=== PATIENT | female | born 1925 | race Asian ===

== ENCOUNTER 2016-11-15 13:55 | Inpatient (IN) | payer MEDICARE, OTHER ==
[~2016-11-15] VITALS: Ht 162.6 cm; Wt 53.2 kg
[~2016-11-15 13:55] MED LIST: ACET325T40 PO; DOCU-144 PO; HYDR-3671 PO; LANT3I SC; LOSA50TA2 PO; METO-448 PO; NOVO3I SC; OSLT75C PO; SENN-36 PO
[2016-11-15] MEDS ORDERED: DIPHTH/TET/ACEL PERTUSS (ADULT) 0.5 ML VIAL IM* ONE (14:00)
[2016-11-15] MEDS ORDERED: CELE200C PO (16:12)
[2016-11-15] MEDS ORDERED: OMEP40CA6 PO (16:12)
[2016-11-15] MEDS ORDERED: FURO20TA3 PO (16:13)
[2016-11-15] MEDS ORDERED: SIMV20TA PO (16:13)
[2016-11-15] MEDS ORDERED: CLOP75TA4 PO (16:13)
[2016-11-15] MEDS ORDERED: POTA8CAP PO (16:14)
[2016-11-15] MEDS ORDERED: CARV12.579 PO (16:15)
[2016-11-15] MEDS ORDERED: LIPA1CAP6 PO (16:15)
[2016-11-15] MEDS ORDERED: KENC1 TOP (16:16)
[2016-11-15] MEDS ORDERED: SITA1TAB PO (16:16)
[2016-11-15] MEDS ORDERED: OLME1TAB37 PO (16:17)
--- NOTE | 2016-11-15 17:27 | RADRPT ---
PROCEDURE: CT Brain without. CLINICAL INDICATION: Trauma. TECHNIQUE: A CT of the brain was performed on multidetector high-resolution CT scanner utilizing a xial sections from the skull base through the vertex without contrast. The scan was reviewed in sof t tissue brain and high frequency resolution bone algorithm windows. Images were reviewed on a high -resolution PACS workstation. One or more the following does reduction techniques were utilized: Aut omated exposure control, adjustment of the mA/ or kV according to patient's size, or use of iterativ e reconstruction technique. The exam CTDI = 45.01 mGy and the DLP = 90.03 mGy-cm. COMPARISON: Brain CT 09/06/2015. FINDINGS: There is low density subdural fluid collection mainly overlying right frontal and parietal lobes jeronimo suring up to 5 mm in thickness which likely represent chronic subdural hematoma. The ventricles and sulci are mildly prominent indicative of volume loss. There is no acute intracran ial hemorrhage, mass effect or midline shift. The hollis/white matter differentiation is preserved. Small old infarct in the right cerebellum is again noted. Chronic lacunar infarct within the left in ferior basal ganglia as well as old pontine infarct are noted. There are moderate scattered foci of hypoattenuation in the white matter, which are nonspecific in e tiology but likely reflect chronic small vessel ischemic changes. There are moderate intracranial v ascular calcifications consistent with atherosclerosis. The visualized paranasal sinuses are essenti ally clear. There is thinning of bilateral lens indicative of prior lens replacement. IMPRESSION: 1. 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 2. No acute intracranial hemorrhage, transcortical infarction or midline shift. 3. Moderate intracranial atherosclerosis and chronic small vessel ischemic changes. 4. 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 5. Mild generalized cerebral volume loss. RPTAT: HH .Arley Bhat MD, MD Date Time Electronically viewed and signed by .Arley Bhat MD, MD on 11/15/2016 17:27 .N/
--- NOTE | 2016-11-15 17:36 | RADRPT ---
PROCEDURE: CT cervical spine without contrast CLINICAL INDICATION: Trauma. Neck pain. TECHNIQUE: CT scan of the cervical spine was performed on [facility] No IV contrast was administered. Coronal and sagittal reformatted images were obtained from th e axial source images. Images were reviewed on a high-resolution PACS workstation. One or more the f ollowing does reduction techniques were utilized: Automated exposure control, adjustment of the mA/ or kV according to patient's size, or use of iterative reconstruction technique. Exam CTDI = 22.21 m Gy and the DLP = 457.86 mGy-cm. COMPARISON: None available. FINDINGS: There is straightening of the alignment of the cervical spine with loss of the normal cervical lordo sis. Alignment remains intact. No acute fracture or dislocation is seen. The vertebral body heigh ts are preserved. No mass, hematoma, or other soft tissue abnormality is seen. There are multilevel mild to moderate degenerative changes of the cervical spine, manifested by oste ophytosis and disc height narrowing, most prominent at C4-C5, C5-C6 and C6-C7. Prominent anterior os teophyte ptosis at C3-C4 indenting the posterior pharynx. Uncovertebral osteophytes and facet arthro kem result in multilevel foraminal stenosis: at C2-C3 moderate to severe on the right and mild on the left, at C3-C4 severe on the right and mild on the left, at C4-C5 severe on the right and mild o n the left, at C5-C6 moderate to severe on the right and moderate on the left, at C6-C7 moderate on the right and mild on the left. Posterior disk osteophyte complexes contribute to mild to moderate s cody canal stenosis at C3-C4 through C6-C7. Moderate bilateral carotid bulb atherosclerotic vascular calcifications are identified. IMPRESSION: 1. Straightening of normal cervical lordosis. 2. No acute fracture or traumatic subluxation. 3. Multilevel mild to moderate degenerative changes of the cervical spine, most prominent at C4-C5, C5-C6 and C6-C7. 4. Multilevel moderate to severe foraminal stenosis as outlined in details in findings. 5. Mild to moderate spinal canal stenosis at C3-C4 through C6-C7. 6. Moderate bilateral carotid bulb atherosclerotic vascular calcifications. RPTAT: .Arley Bhat MD, MD Date Time Electronically viewed and signed by .Arley Bhat MD, MD on 11/15/2016 17:35 .N/
[2016-11-15] MEDS ORDERED: LIDOCAINE 1%/EPI 30 ML INJ IM ONE (18:00)
[2016-11-15] MEDS ORDERED: LIDOCAINE 1%/EPI (MDV) 20 ML INJ IM ONE (18:00)
[2016-11-15 19:06] LABS: BASOPHIL # 0.1 10^3/ul (0.0-0.1); BASOPHILS % 0.7 % (0.0-2.0); EOSINOPHILS % 0.1 % (0.0-7.0); HEMATOCRIT 36.7 % (37.0-47.0); HEMOGLOBIN 12.4 g/dl (12.0-16.0); LYMPHOCYTES # 2.1 10^3/ul (0.8-2.9); LYMPHOCYTES % 18.5 % (15.0-51.0); MEAN CORPUSCULAR HEMOGLOBIN 34.6 pg (29.0-33.0); MEAN CORPUSCULAR HGB CONC 33.8 g/dl (32.0-37.0); MEAN CORPUSCULAR VOLUME 102.6 fl (82.0-101.0); MEAN PLATELET VOLUME 8.7 fl (7.4-10.4); MONOCYTE # 0.7 10^3/ul (0.3-0.9); MONOCYTES % 5.7 % (0.0-11.0); NEUTROPHIL # 8.7 10^3/ul (1.6-7.5); PLATELET COUNT 271 10^3/UL (140-440); RED BLOOD COUNT 3.58 10^6/ul (4.20-5.40); RED CELL DISTRIBUTION WIDTH 14.6 % (11.5-14.5); UNCORRECTED WBC 11.6 10^3/ul (4.8-10.8); WHITE BLOOD COUNT 11.6 10^3/ul (4.8-10.8)
[2016-11-15 19:10] LABS: CONDITION 1; LH ANALYZER COMMENTS 1
[2016-11-15] MEDS ORDERED: ACETAMINOPHEN 325 MG TAB PO PRN (19:30)
[2016-11-15] MEDS ORDERED: ONDANSETRON 4 MG INJ IV PRN (19:30)
--- NOTE | 2016-11-15 19:43 | ERA ---
ER Documentation Chief Complaint Date/Time DATE: 11/15/16 TIME: 19:41 Chief Complaint BIB RA FOR EVAL OF LAC TO BACK OF HEAD. GLF TODAY. NO KO HPI 89-year-old female who presents via EMS after mechanical trip and fall. The patient was walking on gravel slipped and fell. The patient hit her head and has an occipital scalp laceration. She is accompanied by her son. She has a history of dementia. After period of time the son noted that the patient had recently been discharged from assisted living facility. She lives at home alone and her is hospitalized. He feels that the patient cannot care for herself and she has been falling frequently. He does not feel comfortable managing the patient at home. Unknown tetanus. The patient has no complaints. No neck pain no prodrome of chest pain or shortness of breath. ROS All systems reviewed and are negative except as per history of present illness. Medications Home Meds Active Scripts Insulin Glargine* (Lantus*) 100 Unit/Ml Soln, 15 UNIT SC HS for 14 Days, EA Prov:EVER LENZ MD 09/07/15 Insulin Aspart* (Novolog Insulin Pen*) 100 Unit/Ml Soln, 0 UNIT SC AC MEALS AND BEDTIME for 14 Days Prov:EVER LENZ MD 09/07/15 Reported Medications Jdzqldrwvb-Yrwcyqnamd-RFVO (Tribenzor) 40-10-25 Mg Tablet, 1 TAB PO DAILY, TAB 11/15/16 Triamcinolone Acetonide* (Kenalog*) 0.1%-15GM Cr, 1 APPLIC TOP BID, #1 TUB 11/15/16 Sitagliptin Phos/Metformin HCl (Janumet 50-500 mg Tablet) 1 Each Tablet, 1 EACH PO BID, TAB 11/15/16 Nucajg-Vufyjcha-Fgcrjyn* (Joseph LEAVITT* 24,000) 24,000 L-76,000-120,000 Unit Capsule.dr, 1 CAP PO WITH MEALS, CAP 11/15/16 Carvedilol* (Carvedilol*) 12.5 Mg Tablet, 12.5 MG PO DAILY, #60 TAB 11/15/16 Potassium Chloride* (Potassium Chloride*) 8 Meq Capsule.er, 8 MEQ PO DAILY, CAP 11/15/16 Furosemide* (Furosemide*) 20 Mg Tablet, 20 MG PO DAILY, #60 TAB 11/15/16 Clopidogrel Bisulfate* (Clopidogrel Bisulfate*) 75 Mg Tablet, 75 MG PO DAILY, # 30 TAB 11/15/16 Simvastatin* (Zocor*) 20 Mg Tablet, 20 MG PO QHS, #30 TAB 11/15/16 Celecoxib* (Celebrex*) 200 Mg Capsule, 200 MG PO DAILY, CAP 11/15/16 Omeprazole* (Omeprazole*) 40 Mg Capsule.dr, 40 MG PO DAILY, #30 CAP 11/15/16 Discontinued Scripts Oseltamivir Phosphate* (Tamiflu*) 75 Mg Capsule, 75 MG PO BID for 5 Days, CAP Prov:BONNY BROWN 09/07/16 Sennosides* (Senokot*) 1 Tab Tab, 2 TAB PO BID for 14 Days, TAB Prov:EVER LENZ MD 09/07/15 Metoprolol Tartrate* (Lopressor*) 25 Mg Tab, 25 MG PO BID for 14 Days, TAB Prov:EVER LENZ MD 09/07/15 Losartan Potassium* (Cozaar*) 50 Mg Tab, 100 MG PO DAILY for 14 Days, TAB Prov:EVER LENZ MD 09/07/15 Hydralazine Hcl* (Hydralazine Hcl*) 25 Mg Tab, 50 MG PO Q8 for 14 Days, TAB Prov:EVER LENZ MD 09/07/15 Docusate Sodium* (Colace*) 100 Mg Cap, 100 MG PO BID for 14 Days, CAP Prov:EVER LENZ MD 09/07/15 Acetaminophen (MAPAP) 325 Mg Tab, 650 MG PO Q6H Y for PAIN LEVEL 1-3 OR FEVER for 14 Days, TAB Prov:EVER LENZ MD 09/07/15 Allergies Allergies: Coded Allergies: Penicillins (Verified Allergy, Mild, 11/15/16) PMhx/Soc History of Surgery: Yes (BACK SX X3) Anesthesia Reaction: No Hx Neurological Disorder: No Hx Respiratory Disorders: Yes (HX OF PNEUMONIA) Hx Cardiac Disorders: Yes (HTN) Hx Psychiatric Problems: No Hx Miscellaneous Medical Probl: Yes (HTN, TBI with subdural hematoma) Hx Alcohol Use: No Hx Substance Use: No Hx Tobacco Use: No Smoking Status: Never smoker FmHx Family History: No diabetes Physical Exam Vitals Vital Signs Date Time Temp Pulse Resp B/P Pulse Ox O2 Delivery O2 Flow Rate FiO2 11/15/16 19:00 98.4 78 16 136/82 100 Room Air 11/15/16 16:05 98.6 75 16 142/84 100 Room Air 11/15/16 14:01 98.4 74 19 152/82 100 Physical Exam General: Well developed, well nourished, no acute distress Head: Occipital scalp laceration Eyes: Pupils equally reactive, EOM intact ENT: Moist mucous membranes Neck: Supple, no lymphadenopathy, No midline tenderness, deformities, step-offs to the cervical spine, full active and passive range of motion without midline pain. Respiratory: Lungs clear bilaterally, no distress Cardiovascular: RRR, no murmurs, rubs, or gallops Abdominal: Soft, non-tender, non-distended, no peritoneal signs : Deferred MSK: No edema, no unilateral swelling, 5/5 strength Neurologic: Alert and oriented, moving all extremities, normal speech, no focal weakness, no cerebellar signs Skin: Occipital scalp laceration approximately 3 cm Psych: Normal mood Result Diagram: 11/15/16 8977 Results 24 hrs Laboratory Tests Test 11/15/16 18:45 Basophils # 0.110^3/ul Basophils % 0.7% Blood Morphology Comment Eosinophils # 0.010^3/ul Eosinophils % 0.1% Hematocrit 36.7% Hemoglobin 12.4g/dl Lymphocytes # 2.110^3/ul Lymphocytes % 18.5% Mean Corpuscular Hemoglobin 34.6pg Mean Corpuscular Hemoglobin Concent 33.8g/dl Mean Corpuscular Volume 102.6fl Mean Platelet Volume 8.7fl Monocytes # 0.710^3/ul Monocytes % 5.7% Neutrophils # 8.710^3/ul Neutrophils % 75.0% Nucleated Red Blood Cells # 0.010^3/ul Nucleated Red Blood Cells % 0.0/100WBC Platelet Count 91564^3/UL Red Blood Count 3.5810^6/ul Red Cell Distribution Width 14.6% White Blood Count 11.610^3/ul Current Medications Medications (Trade) Dose Ordered Sig/Michael Route PRN Reason Start Time Stop Time Status Last Admin Dose Admin Diphtheria/ Tetanus/Acell Pertussis (Adacel) 0.5 ml ONCE ONCE IM* 11/15/16 14:00 11/15/16 14:01 DC 11/15/16 14:57 Lidocaine/ Epinephrine (Xylocaine 1%/ Epi (Mdv) 20 ml) 20 ml ONCE ONCE IM 11/15/16 18:00 11/15/16 18:00 DC Lidocaine/ Epinephrine (Xylocaine 1%/ Epi) 20 ml ONCE ONCE IM 11/15/16 18:00 11/15/16 18:01 DC Ondansetron HCl (Zofran Inj) 4 mg BRIDGE ORDER PRN IV NAUSEA AND/OR VOMITING 11/15/16 19:30 11/16/16 19:29 Acetaminophen (Tylenol Tab) 650 mg ER BRIDGE PRN PO MILD PAIN/FEVER 11/15/16 19:30 11/16/16 19:29 Procedures/MDM EKG, MONITORS, & DIAGNOSTIC IMAGING: CT brain: IMPRESSION: 1. 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 2. No acute intracranial hemorrhage, transcortical infarction or midline shift. 3. Moderate intracranial atherosclerosis and chronic small vessel ischemic changes. 4. 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 5. Mild generalized cerebral volume loss. CT spine IMPRESSION: 1. Straightening of normal cervical lordosis. 2. No acute fracture or traumatic subluxation. 3. Multilevel mild to moderate degenerative changes of the cervical spine, most prominent at C4-C5, C5-C6 and C6-C7. 4. Multilevel moderate to severe foraminal stenosis as outlined in details in findings. 5. Mild to moderate spinal canal stenosis at C3-C4 through C6-C7. 6. Moderate bilateral carotid bulb atherosclerotic vascular calcifications. RPTAT: PROCEDURES: Laceration Note: The patient was verbally consented prior to procedure and understands the risks , benefits, and alternatives. The patient is agreeable to procedure and has given verbal consent. Length: 3.0 cm Irrigation: Thorough irrigation was performed with pressure is normal saline Inspection: There is no evidence of deep tissue or structural injury, no evidence of foreign bodies Anesthesia: 1% lidocaine with epinephrine approximately 4 cc Repair: Single layer simple repair using 4 jason A clean dressing was applied. The patient tolerated the procedure well with no complications. LAB INTERPRETATION: Subtle leukocytosis MEDICAL DECISION MAKING: The patient had a clear mechanical fall. This is not consistent with syncope. However, the patient has had frequent falls. The patient's son feels that the patient cannot be cared for at home and she cannot care for activities of daily living and is a significant fall risk. Given her social situation inpatient hospitalization may be required. The patient does not have evidence of a C-spine injury. However given her age CT C-spine is indicated. CT of the brain is appropriate as well. ER COURSE: The patient's laceration has been repaired. Her tetanus is updated. The patient's CT shows evidence of chronic subdural. This is likely subacute however I spoke to the neurosurgeon alternative education teacher Dr. Henao. We reviewed the case. He feels that this is minimal, likely subacute and does not require intervention. Outpatient follow-up would be reasonable. Given that the patient is having difficulty ambulating with frequent falls inpatient hospitalization will be appropriate, patient will benefit from PT OT and likely placement. I kept the patient and/or family informed of laboratory and diagnostic imaging results throughout the emergency room course. DISPOSITION PLAN: Medical surgical admission CONSULTATION: Accepting care team and consultations: I discussed the current laboratory data, diagnostic imaging and emergency care provided. Admitting team: Dr. Brown Admitting team indication: Insurance directed Consulting services: Dr. Henao Departure Diagnosis: Primary Impression: Chronic subdural hematoma Additional Impressions: Occipital scalp laceration Qualified Code: S01.01XA - Occipital scalp laceration, initial encounter Frequent falls Dementia Qualified Code: F03.90 - Dementia without behavioral disturbance, unspecified dementia type Condition: MITCH Cyr MD Nov 15, 2016 19:43
[2016-11-15 19:58] LABS: INR 1.04; POTASSIUM 3.7 mmol/L (3.5-5.1); PROTIME 13.6 Sec (12.2-14.2); PT RATIO 1.1
[2016-11-15 19:59] LABS: PARTIAL THROMBOPLASTIN TIME 32.4 Sec (25.0-35.0)
[2016-11-15 20:00] LABS: CREATININE 0.55 mg/dl (0.44-1.00)
[2016-11-15 20:01] LABS: CALCIUM 9.1 mg/dl (8.4-10.2)
[2016-11-15 21:12] VITALS: TEMP 98.4
[2016-11-15 23:00] VITALS: Ht 162.6 cm; Wt 53.2 kg
[2016-11-16] VITALS: BP 140/74; PULSE 82; RESP 16
[2016-11-16] MEDS ORDERED: HALOPERIDOL 5 MG INJ IM ONE (01:15)
[2016-11-16] MEDS ORDERED: ONDANSETRON 4 MG INJ IV PRN (05:00)
[2016-11-16] MEDS: ACETAMINOPHEN 325 MG TAB PO PRN (06:15)
[2016-11-16] MEDS: DEXTROSE 5%-0.45% NACL 1,000 ML IV SCH ×2 (06:16→21:23)
[2016-11-16] MEDS: HEPARIN 5,000 UNIT/0.5 ML SYG SC SCH ×2 (10:05→21:20)
[2016-11-16] MEDS ORDERED: morphine 2 MG INJ IV PRN (12:00)
--- NOTE | 2016-11-16 14:58 | CONS ---
DATE OF ADMISSION: 11/15/2016 DATE OF CONSULTATION: 11/16/2016 PALLIATIVE CARE CONSULTATION REFERRING PHYSICIAN: Austin Brown MD HISTORY OF PRESENT ILLNESS: somewhat confused elderly female who was brought to the emergency room by her son. Apparently she had a mechanical fall and struck the back of her head. Complain of pain , but was not otherwise altered. Was seen in the emergency room. The son states that he has been t aking care of her, but he cannot take care of her. The story becomes a bit confusing at that time. According to medical records in the past she was living in a longterm unit, and [place] [facility] [place] this part that the patient was actually living in a board and care facility. The p bradley is no historian. In reviewing her past medical records, the patient has had multiple mechani samantha falls in the past without and had a subdural hematoma August 2015 and has been seen in the [facility] room multiple times since 2006, 2010, 2013, 2014, 2015. She has had, by documentation, 4 fal ls. SOCIAL HISTORY: Unknown where she lives at, nonsmoker, nondrinker. FAMILY HISTORY: Unable to obtain. REVIEW OF SYSTEMS: Unable to obtain. There are no family members at the bedside. PHYSICAL EXAMINATION: GENERAL: Shows a somewhat confused, but very pleasant female. Normocephalic and atraumatic. Anict miryam, acyanotic. Complaining of discomfort in the back of her head. VITAL SIGNS: Blood pressure 140/74, pulse 82 and regular, respirations of 16, temperature 98.4 degr ees, 100% saturation on room air. HEENT: She is normocephalic and atraumatic. Anicteric, acyanotic on examination. CHEST: Clear to auscultation and percussion. CORONARY: S1, S2, without S3, S4, murmur, gallop, rub. Normal rate, normal rhythm on examination. ABDOMEN: Grossly benign. NEUROLOGIC: Moves all upper and lower extremities. She is oriented x1, person. Cranial nerves are grossly intact. Sensory grossly intact. CT scan done this hospitalization. Please refer to extensive notes done by Dr. Vahid Eckert which s how primarily old chronic subdural hematoma, no evidence of acute intracranial process and chronic i nfarcts in the right cerebellum. ASSESSMENT AND PLAN: This is a very pleasant 89-year-old female who is a FULL CODE and presented to the emergency room, brought in by her son for multiple falls and inability to take care of her safe ly at this time. I have placed a phone call to her son. There is no pickup. There is no answering machine. I will continue to try and contact him this evening and obtain a more detailed past medi samantha history and discuss goals of care with him. His name is Wayne Irene, next of kin, . Thank you very much, Dr. Brown. Dictated By: RULA WOMACK MD LP/NTS Conf#: [id number] DID#: [id number]
--- NOTE | 2016-11-16 23:09 | HP ---
Date/Time of Note Date/Time of Note DATE: 11/16/16 TIME: 23:08 Assessment/Plan VTE Prophylaxis VTE Prophylaxis Intervention: SCD's Lines/Catheters IV Catheter Type (from Nrsg): Saline Lock Assessment/Plan Assessment/Plan IMPRESSION 1. Frequent Mechanical Falls 2. Scalp laceration 3. 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 Dementia 6. Hx of HTN 7. Hx of DM PLAN Monitor for any acute mental change Fall precaution Cont meds and adjust as needed physical therapy to asses what pt is capable of doing SW/case repairer consult for SNF placement HPI/ROS Admit Date/Time Admit Date/Time Nov 15, 2016 at 19:16 Hx of Present Illness 89-year-old female with hx of HTN, DM, SDH, CVA and dementia who presents via EMS after mechanical trip and fall. The patient was walking on gravel slipped and fell. The patient hit her head and has an occipital scalp laceration. She is accompanied by her son. She has a history of dementia. After period of time the son noted that the patient had recently been discharged from assisted living facility. She lives at home alone and her is hospitalized. He feels that the patient cannot care for herself and she has been falling frequently. ER Course: Brain CT showed chronic SDH and chronic infarct. PMH/Family/Social Social History Smoking Status: Never smoker Exam/Review of Systems Vital Signs Vitals Vital Signs Date Time Temp Pulse Resp B/P Pulse Ox O2 Delivery O2 Flow Rate FiO2 11/16/16 00:00 98.4 82 16 140/74 100 Room Air Intake and Output 11/15/16 11/15/16 11/16/16 15:00 23:00 07:00 Intake Total 0 ml Balance 0 ml Exam Constitutional: other (not oriented) Head: lacerations, other (in occipital area) Eyes: PERRL Respiratory: clear to auscultation, normal air movement Cardiovascular: nl pulses, regular rate and rhythm Gastrointestinal: soft Extremities: normal pulses Labs Result Diagram: 11/15/16184411/15/161844 Medications Medications Current Medications Haloperidol (Haldol) 2 mg Q6H PRN IM AGITATION/ANXIETY; Start 11/16/16 at 01:00 Acetaminophen (Tylenol Tab) 650 mg Q6H PRN PO PAIN AND OR ELEVATED TEMP Last administered on 11/16/16t 06:15; Admin Dose 650 MG; Start 11/16/16 at 05:00 Ondansetron HCl 4 mg 4 mg Q4H PRN IV NAUSEA AND/OR VOMITING; Start 11/16/16 at 05:00 Dextrose/Sodium Chloride (D5-1/2ns) 1,000 ml @ 75 mls/hr [id number] IV Last administered on 11/16/16 21:23; Admin Dose 75 MLS/HR; Start 11/16/16 at 05:00 Heparin Sodium (Porcine) (Heparin (5000 Units/0.5 ml)) 5,000 unit BID SC Last administered on 11/16/16 21:20; Admin Dose 5,000 UNIT; Start 11/16/16 at 09:00 Influenza Virus Vaccine (Fluzone) 0.5 ml ONCE ONCE IM* ; Start 11/18/16 at 09:00 ; Stop 11/18/16 at 09:01 Morphine Sulfate (morphine) 2 mg Q3H PRN IV PAIN LEVEL 6-10; Start 11/16/16 at 12:00 EVER LENZ MD Nov 16, 2016 23:08
[2016-11-17 06:17] LABS: BASOPHILS % 0.4 % (0.0-2.0); EOSINOPHILS % 0.5 % (0.0-7.0); HEMATOCRIT 36.7 % (37.0-47.0); HEMOGLOBIN 12.6 g/dl (12.0-16.0); LYMPHOCYTES # 1.6 10^3/ul (0.8-2.9); LYMPHOCYTES % 18.2 % (15.0-51.0); MEAN CORPUSCULAR HEMOGLOBIN 35.1 pg (29.0-33.0); MEAN CORPUSCULAR HGB CONC 34.4 g/dl (32.0-37.0); MEAN CORPUSCULAR VOLUME 102.1 fl (82.0-101.0); MEAN PLATELET VOLUME 8.1 fl (7.4-10.4); MONOCYTE # 0.6 10^3/ul (0.3-0.9); NEUTROPHIL # 6.6 10^3/ul (1.6-7.5); NEUTROPHILS % 73.9 % (39.0-77.0); PLATELET COUNT 282 10^3/UL (140-440); RED CELL DISTRIBUTION WIDTH 13.8 % (11.5-14.5); UNCORRECTED WBC 8.9 10^3/ul (4.8-10.8); WHITE BLOOD COUNT 8.9 10^3/ul (4.8-10.8)
[2016-11-17 06:28] LABS: CONDITION 1; LH ANALYZER COMMENTS 1
[2016-11-17 06:29] LABS: POTASSIUM 3.5 mmol/L (3.5-5.1)
[2016-11-17 06:31] LABS: CREATININE 0.47 mg/dl (0.44-1.00)
[2016-11-17 06:32] LABS: CALCIUM 8.7 mg/dl (8.4-10.2); MAGNESIUM 1.9 mg/dl (1.7-2.5); PHOSPHORUS 2.6 mg/dl (2.5-4.9)
[2016-11-17] MEDS: DEXTROSE 5%-0.45% NACL 1,000 ML IV SCH ×2 (07:40→14:44)
[2016-11-17 08:19] VITALS: BP 193/82; RESP 18
[2016-11-17 08:25] VITALS: BP 121/67; RESP 17
[2016-11-17] MEDS: HEPARIN 5,000 UNIT/0.5 ML SYG SC SCH ×2 (09:35→22:38)
[2016-11-17] MEDS ORDERED: GLUCAGON 1 MG INJ IM PRN (10:30)
[2016-11-17] MEDS ORDERED: DEXTROSE 50% 50 ML SYRINGE IV PRN ×2 (10:30)
[2016-11-17] MEDS ORDERED: GLUCOSE GEL 15 GRAM TUBE BUCCAL PRN (10:30)
[2016-11-17] MEDS ORDERED: GLUCOSE GEL 15 GRAM TUBE PO PRN ×2 (10:30)
[2016-11-17] MEDS: CREON (24K-76K-120K) 1 CAP PO SCH ×3 (12:34→18:05)
--- NOTE | 2016-11-17 15:22 | PN ---
Date/Time of Note Date/Time of Note DATE: 11/17/16 TIME: 15:12 Assessment/Plan VTE Prophylaxis VTE Prophylaxis Intervention: heparin Lines/Catheters IV Catheter Type (from Nrs): Peripheral IV Assessment/Plan Chief Complaint/Hosp Course 1. Acute on Chronic Encephalopathy -check a UA -Neurochecks -cont sitter 2. 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 4. Hx of HTN -resume Home meds 5. Hx of DM -start SubQ Insulin -check A1C 6. Macrocytosis -check B12 and Folate PPx- Heparin Problems: Subjective 24 Hr Interval Summary Constitutional: disoriented Exam/Review of Systems Vital Signs Vitals Vital Signs Date Time Temp Pulse Resp B/P Pulse Ox O2 Delivery O2 Flow Rate FiO2 11/17/16 08:19 97.6 96 18 193/82 96 11/16/16 00:00 Room Air Intake and Output 11/16/16 11/16/16 11/17/16 15:00 23:00 07:00 Intake Total 1000 ml 530 ml Balance 1000 ml 530 ml Exam Psych: confusion Respiratory: clear to auscultation Cardiovascular: regular rate and rhythm Gastrointestinal: soft, No distended Musculoskeletal: nl extremities to inspection Results Result Diagram: 11/17/16 0547 11/17/16 0547 Results 24 hrs Laboratory Tests Test 11/17/16 05:47 Anion Gap 14 Basophils # 0.0 Basophils % 0.4 Blood Morphology Comment Blood Urea Nitrogen 7 Calcium Level 8.7 Carbon Dioxide Level 26 Chloride Level 104 Creatinine 0.47 Eosinophils # 0.0 Eosinophils % 0.5 Glucose Level 239 H Hematocrit 36.7 L Hemoglobin 12.6 Lymphocytes # 1.6 Lymphocytes % 18.2 Magnesium Level 1.9 Mean Corpuscular Hemoglobin 35.1 H Mean Corpuscular Hemoglobin Concent 34.4 Mean Corpuscular Volume 102.1 H Mean Platelet Volume 8.1 Monocytes # 0.6 Monocytes % 7.0 Neutrophils # 6.6 Neutrophils % 73.9 Nucleated Red Blood Cells # 0.0 Nucleated Red Blood Cells % 0.0 Phosphorus Level 2.6 Platelet Count 282 Potassium Level 3.5 Red Blood Count 3.60 L Red Cell Distribution Width 13.8 Sodium Level 140 White Blood Count 8.9 # Medications Medications Current Medications Haloperidol (Haldol) 2 mg Q6H PRN IM AGITATION/ANXIETY; Start 11/16/16 at 01:00 Acetaminophen (Tylenol Tab) 650 mg Q6H PRN PO PAIN AND OR ELEVATED TEMP Last administered on 11/16/16 06:15; Admin Dose 650 MG; Start 11/16/16 at 05:00 Ondansetron HCl 4 mg 4 mg Q4H PRN IV NAUSEA AND/OR VOMITING; Start 11/16/16 at 05:00 Dextrose/Sodium Chloride (D5-1/2ns) 1,000 ml @ 75 mls/hr [id number] IV Last administered on 11/17/16 14:44; Admin Dose 75 MLS/HR; Start 11/16/16 at 05:00 Heparin Sodium (Porcine) (Heparin (5000 Units/0.5 ml)) 5,000 unit BID SC Last administered on 11/17/16 09:35; Admin Dose 5,000 UNIT; Start 11/16/16 at 09:00 Influenza Virus Vaccine (Fluzone) 0.5 ml ONCE ONCE IM* ; Start 11/18/16 at 09:00 ; Stop 11/18/16 at 09:01 Morphine Sulfate (morphine) 2 mg Q3H PRN IV PAIN LEVEL 6-10; Start 11/16/16 at 12:00 Insulin Glargine (Lantus) 10 unit HS SC ; Start 11/17/16 at 21:00 Carvedilol (Coreg) 6.25 mg BID PO Last administered on 11/17/16 10:57; Admin Dose 6.25 MG; Start 11/17/16 at 10:00 Furosemide (Lasix) 20 mg DAILY PO ; Start 11/18/16 at 09:00 Potassium Chloride (Micro-K) 8 meq DAILY PO ; Start 11/18/16 at 09:00 Triamcinolone Acetonide (Kenalog 0.1% Cr) 1 applic BID TOP ; Start 11/17/16 at 21:00 Losartan Potassium (Cozaar) 150 mg DAILY PO ; Start 11/18/16 at 09:00 Pantoprazole (Protonix Tab) 40 mg DAILY@06 PO ; Start 11/18/16 at 06:00 Atorvastatin Calcium (Lipitor) 10 mg DAILY@21 PO ; Start 11/17/16 at 21:00 Linagliptin (Tradjenta) 5 mg DAILY PO ; Start 11/18/16 at 09:00 Miscellaneous Information 1 ea NOTE XX ; Start 11/17/16 at 10:30 Glucose (Glutose) 15 gm Q15M PRN PO DECREASED GLUCOSE; Start 11/17/16 at 10:30 Glucose (Glutose) 22.5 gm Q15M PRN PO DECREASED GLUCOSE; Start 11/17/16 at 10: 30 Dextrose (D50w Syringe) 25 ml Q15M PRN IV DECREASED GLUCOSE; Start 11/17/16 at 10:30 Dextrose (D50w Syringe) 50 ml Q15M PRN IV DECREASED GLUCOSE; Start 11/17/16 at 10:30 Glucagon (Glucagen) 1 mg Q15M PRN IM DECREASED GLUCOSE; Start 11/17/16 at 10:30 Glucose (Glutose) 15 gm Q15M PRN BUCCAL DECREASED GLUCOSE; Start 11/17/16 at 10 :30 Amlodipine Besylate (Norvasc) 10 mg DAILY PO ; Start 11/18/16 at 09:00 Hydrochlorothiazide (Hydrochlorothiazide) 25 mg DAILY PO ; Start 11/18/16 at 09: 00 BONNY GIRON Nov 17, 2016 15:21
[2016-11-17] MEDS: metFORMIN 500 MG TAB PO SCH (17:09)
[2016-11-17] MEDS: INSULIN ASPART [NOVOLOG] 3 ML PEN SC SCH ×2 (17:10→23:28)
[2016-11-17] MEDS: HALOPERIDOL 5 MG INJ IM PRN (21:00)
[2016-11-17] MEDS: ATORVASTATIN 10 MG TAB PO SCH (21:00)
[2016-11-17] MEDS: TRIAMCINOLONE ACET 0.1% 15 GM CR TOP SCH (21:00)
[2016-11-17 21:16] VITALS: BP 207/95; RESP 20
[2016-11-17] MEDS: INSULIN GLARGINE [LANtus] 3 ML PEN SC SCH (23:30)
[2016-11-18] MEDS: hydrALAzine 20 MG INJ IV PRN ×2 (00:06→21:31)
[2016-11-18 00:18] VITALS: BP 126/66; PULSE 95
[2016-11-18] MEDS: ACCUCHECK XX SCH (02:57)
[2016-11-18] MEDS: PANTOPRAZOLE (EC) 40 MG TAB PO SCH (04:33)
[2016-11-18 08:24] LABS: BASOPHILS % 0.4 % (0.0-2.0); EOSINOPHILS % 0.3 % (0.0-7.0); HEMATOCRIT 38.5 % (37.0-47.0); LYMPHOCYTES # 1.7 10^3/ul (0.8-2.9); LYMPHOCYTES % 15.9 % (15.0-51.0); MEAN CORPUSCULAR HEMOGLOBIN 34.2 pg (29.0-33.0); MEAN CORPUSCULAR HGB CONC 33.7 g/dl (32.0-37.0); MEAN CORPUSCULAR VOLUME 101.2 fl (82.0-101.0); MEAN PLATELET VOLUME 8.1 fl (7.4-10.4); MONOCYTE # 0.6 10^3/ul (0.3-0.9); MONOCYTES % 5.7 % (0.0-11.0); NEUTROPHIL # 8.3 10^3/ul (1.6-7.5); NEUTROPHILS % 77.7 % (39.0-77.0); PLATELET COUNT 304 10^3/UL (140-440); RED BLOOD COUNT 3.81 10^6/ul (4.20-5.40); RED CELL DISTRIBUTION WIDTH 13.6 % (11.5-14.5); UNCORRECTED WBC 10.7 10^3/ul (4.8-10.8); WHITE BLOOD COUNT 10.7 10^3/ul (4.8-10.8)
[2016-11-18 08:27] LABS: CONDITION 1; LH ANALYZER COMMENTS 1
[2016-11-18 08:33] LABS: POTASSIUM 3.4 mmol/L (3.5-5.1)
[2016-11-18 08:35] LABS: CREATININE 0.52 mg/dl (0.44-1.00)
[2016-11-18 08:36] LABS: CALCIUM 8.6 mg/dl (8.4-10.2)
[2016-11-18] MEDS ORDERED: INFLUENZA VIRUS VACCINE 0.5 ML (DISPENSING) IM* ONE (09:00)
[2016-11-18] MEDS: INSULIN ASPART [NOVOLOG] 3 ML PEN SC SCH ×4 (09:02→21:30)
[2016-11-18] MEDS: CREON (24K-76K-120K) 1 CAP PO SCH ×3 (09:03→18:30)
[2016-11-18] MEDS: TRIAMCINOLONE ACET 0.1% 15 GM CR TOP SCH ×2 (09:03→21:30)
[2016-11-18] MEDS: POTASSIUM CHLORIDE (SR) 8 MEQ CAP PO SCH (09:03)
[2016-11-18 09:50] LABS: FOLATE > 20.0 ng/ml (2.8-20.0)
[2016-11-18] MEDS: HYDROCHLOROTHIAZIDE 25 MG TAB PO SCH (10:29)
[2016-11-18] MEDS: metFORMIN 500 MG TAB PO SCH ×2 (10:30→18:30)
[2016-11-18] MEDS: FUROSEMIDE 20 MG TAB PO SCH (10:30)
[2016-11-18] MEDS: LOSARTAN 50 MG TAB PO SCH (10:31)
[2016-11-18] MEDS: AMLODIPINE 10 MG TAB PO SCH (10:31)
[2016-11-18] MEDS: LINAGLIPTIN 5 MG TABLET PO SCH (10:32)
[2016-11-18] MEDS: HEPARIN 5,000 UNIT/0.5 ML SYG SC SCH ×2 (10:39→21:23)
[2016-11-18] MEDS: DEXTROSE 5%-0.45% NACL 1,000 ML IV SCH ×2 (10:42→23:40)
--- NOTE | 2016-11-18 17:29 | PN ---
Date/Time of Note Date/Time of Note DATE: 11/18/16 TIME: 17:28 Assessment/Plan VTE Prophylaxis VTE Prophylaxis Intervention: heparin Lines/Catheters IV Catheter Type (from Nrs): Saline Lock Assessment/Plan Chief Complaint/Hosp Course 1. Acute on Chronic Encephalopathy -check a UA -Neurochecks -cont sitter -Palliative Care on case, has been unable to get a hold of family 2. 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 4. Hx of HTN -resume Home meds 5. Hx of DM -start SubQ Insulin -check A1C 6. Macrocytosis -check B12 and Folate PPx- Heparin Problems: Subjective 24 Hr Interval Summary Constitutional: disoriented Exam/Review of Systems Vital Signs Vitals Vital Signs Date Time Temp Pulse Resp B/P Pulse Ox O2 Delivery O2 Flow Rate FiO2 11/18/16 00:18 95 126/66 11/17/16 21:16 98.1 20 97 11/16/16 00:00 Room Air Intake and Output 11/17/16 11/17/16 11/18/16 15:00 23:00 07:00 Intake Total 470 ml 600 ml 620 ml Balance 470 ml 600 ml 620 ml Exam Psych: confusion Respiratory: clear to auscultation Cardiovascular: regular rate and rhythm Gastrointestinal: soft, No distended Musculoskeletal: nl extremities to inspection Results Result Diagram: 11/18/16 0750 11/18/16 0750 Results 24 hrs Laboratory Tests Test 11/17/16 23:24 11/18/16 02:52 11/18/16 07:50 11/18/16 07:56 Bedside Glucose 253 H 143 147 Anion Gap 15 Basophils # 0.0 Basophils % 0.4 Blood Morphology Comment Blood Urea Nitrogen 11 Calcium Level 8.6 Carbon Dioxide Level 25 Chloride Level 103 Creatinine 0.52 Eosinophils # 0.0 Eosinophils % 0.3 Folate > 20.0 H Glucose Level 155 Hematocrit 38.5 Hemoglobin 13.0 Hemoglobin A1c 8.2 H Lymphocytes # 1.7 Lymphocytes % 15.9 Mean Corpuscular Hemoglobin 34.2 H Mean Corpuscular Hemoglobin Concent 33.7 Mean Corpuscular Volume 101.2 H Mean Platelet Volume 8.1 Monocytes # 0.6 Monocytes % 5.7 Neutrophils # 8.3 H Neutrophils % 77.7 H Nucleated Red Blood Cells # 0.0 Nucleated Red Blood Cells % 0.0 Platelet Count 304 Potassium Level 3.4 L Red Blood Count 3.81 L Red Cell Distribution Width 13.6 Sodium Level 140 Vitamin B12 Level 595 White Blood Count 10.7 # Test 11/18/16 12:32 Bedside Glucose 165 Medications Medications Current Medications Haloperidol (Haldol) 2 mg Q6H PRN IM AGITATION/ANXIETY Last administered on 21:00; Admin Dose 2 MG; Start 11/16/16 at 01:00 Acetaminophen (Tylenol Tab) 650 mg Q6H PRN PO PAIN AND OR ELEVATED TEMP Last administered on 11/16/16 06:15; Admin Dose 650 MG; Start 11/16/16 at 05:00 Ondansetron HCl 4 mg 4 mg Q4H PRN IV NAUSEA AND/OR VOMITING; Start 11/16/16 at 05:00 Dextrose/Sodium Chloride (D5-1/2ns) 1,000 ml @ 75 mls/hr [id number] IV Last administered on 11/18/16 10:42; Admin Dose 75 MLS/HR; Start 11/16/16 at 05:00 Heparin Sodium (Porcine) (Heparin (5000 Units/0.5 ml)) 5,000 unit BID SC Last administered on 11/18/16 10:39; Admin Dose 5,000 UNIT; Start 11/16/16 at 09:00 Morphine Sulfate (morphine) 2 mg Q3H PRN IV PAIN LEVEL 6-10; Start 11/16/16 at 12:00 Insulin Glargine (Lantus) 10 unit HS SC Last administered on 11/17/16 23:30; Admin Dose 10 UNIT; Start 11/17/16 at 21:00 Carvedilol (Coreg) 6.25 mg BID PO Last administered on 11/18/16 10:32; Admin Dose 6.25 MG; Start 11/17/16 at 10:00 Furosemide (Lasix) 20 mg DAILY PO Last administered on 11/18/16 10:30; Admin Dose 20 MG; Start 11/18/16 at 09:00 Potassium Chloride (Micro-K) 8 meq DAILY PO Last administered on 11/18/16 09: 03; Admin Dose 8 MEQ; Start 11/18/16 at 09:00 Triamcinolone Acetonide (Kenalog 0.1% Cr) 1 applic BID TOP Last administered on 11/18/16 09:03; Admin Dose 1 APPLIC; Start 11/17/16 at 21:00 Losartan Potassium (Cozaar) 150 mg DAILY PO Last administered on 11/18/16 10: 31; Admin Dose 150 MG; Start 11/18/16 at 09:00 Pantoprazole (Protonix Tab) 40 mg DAILY@06 PO ; Start 11/18/16 at 06:00 Atorvastatin Calcium (Lipitor) 10 mg DAILY@21 PO ; Start 11/17/16 at 21:00 Linagliptin (Tradjenta) 5 mg DAILY PO Last administered on 11/18/16 10:32; Admin Dose 5 MG; Start 11/18/16 at 09:00 Miscellaneous Information 1 ea NOTE XX ; Start 11/17/16 at 10:30 Glucose (Glutose) 15 gm Q15M PRN PO DECREASED GLUCOSE; Start 11/17/16 at 10:30 Glucose (Glutose) 22.5 gm Q15M PRN PO DECREASED GLUCOSE; Start 11/17/16 at 10: 30 Dextrose (D50w Syringe) 25 ml Q15M PRN IV DECREASED GLUCOSE; Start 11/17/16 at 10:30 Dextrose (D50w Syringe) 50 ml Q15M PRN IV DECREASED GLUCOSE; Start 11/17/16 at 10:30 Glucagon (Glucagen) 1 mg Q15M PRN IM DECREASED GLUCOSE; Start 11/17/16 at 10:30 Glucose (Glutose) 15 gm Q15M PRN BUCCAL DECREASED GLUCOSE; Start 11/17/16 at 10 :30 Amlodipine Besylate (Norvasc) 10 mg DAILY PO Last administered on 11/18/16 10: 31; Admin Dose 10 MG; Start 11/18/16 at 09:00 Hydrochlorothiazide (Hydrochlorothiazide) 25 mg DAILY PO Last administered on 10:29; Admin Dose 25 MG; Start 11/18/16 at 09:00 Diagnostic Test (Pha) (Accucheck) 1 ea 02 XX Last administered on 11/18/16 02: 57; Admin Dose 1 EA; Start 11/18/16 at 02:00 Hydralazine HCl (Apresoline) 10 mg Q4H PRN IV b/p > 160 Last administered on 00:06; Admin Dose 10 MG; Start 11/17/16 at 21:30 BONNY GIRON Nov 18, 2016 17:28
[2016-11-18 20:53] VITALS: BP 161/72; RESP 19
[2016-11-18] MEDS: ATORVASTATIN 10 MG TAB PO SCH (21:00)
[2016-11-18 21:14] LABS: ADD UMIC YES; URINE BILIRUBIN (Dip) NEGATIVE (NEGATIVE); URINE BLOOD (Dip) 2+ (NEGATIVE); URINE COLOR LT. YELLOW (YELLOW); URINE GLUCOSE (Dip) NEGATIVE (NEGATIVE); URINE KETONES (Dip) NEGATIVE (NEGATIVE); URINE LEUKOCYTE ESTERASE (Dip) NEGATIVE (NEGATIVE); URINE NITRITE (Dip) NEGATIVE (NEGATIVE); URINE TOTAL PROTEIN (Dip) 1+ (NEGATIVE); URINE UROBILINOGEN (Dip) 0.2 E.U./dL (0.1-1.0)
[2016-11-18] MEDS: INSULIN GLARGINE [LANtus] 3 ML PEN SC SCH (21:26)
[2016-11-18 21:40] LABS: BACTERIA,URINE FEW; SQUAMOUS EPITHELIAL CELL,UR MODERATE
[2016-11-18] MEDS: HALOPERIDOL 5 MG INJ IM PRN (23:19)
[2016-11-19] VITALS: BP 126/68
[2016-11-19] MEDS: ACCUCHECK XX SCH (02:00)
[2016-11-19] MEDS: PANTOPRAZOLE (EC) 40 MG TAB PO SCH (05:45)
[2016-11-19 07:23] VITALS: BP 102/53; RESP 18
[2016-11-19 07:40] LABS: EOSINOPHILS % 0.2 % (0.0-7.0); HEMATOCRIT 35.9 % (37.0-47.0); HEMOGLOBIN 12.3 g/dl (12.0-16.0); LYMPHOCYTES # 1.3 10^3/ul (0.8-2.9); LYMPHOCYTES % 9.5 % (15.0-51.0); MEAN CORPUSCULAR HEMOGLOBIN 34.9 pg (29.0-33.0); MEAN CORPUSCULAR HGB CONC 34.3 g/dl (32.0-37.0); MEAN CORPUSCULAR VOLUME 101.7 fl (82.0-101.0); MEAN PLATELET VOLUME 7.9 fl (7.4-10.4); MONOCYTE # 0.5 10^3/ul (0.3-0.9); MONOCYTES % 3.7 % (0.0-11.0); NEUTROPHIL # 11.7 10^3/ul (1.6-7.5); NEUTROPHILS % 86.6 % (39.0-77.0); PLATELET COUNT 297 10^3/UL (140-440); RED BLOOD COUNT 3.53 10^6/ul (4.20-5.40); RED CELL DISTRIBUTION WIDTH 14.3 % (11.5-14.5); UNCORRECTED WBC 13.5 10^3/ul (4.8-10.8); WHITE BLOOD COUNT 13.5 10^3/ul (4.8-10.8)
[2016-11-19 07:45] LABS: CONDITION 1
[2016-11-19 07:46] LABS: LH ANALYZER COMMENTS 1
[2016-11-19 07:47] LABS: CREATININE 0.58 mg/dl (0.44-1.00)
[2016-11-19 07:48] LABS: CALCIUM 8.6 mg/dl (8.4-10.2)
[2016-11-19 07:52] LABS: POTASSIUM 2.8 mmol/L (3.5-5.1)
[2016-11-19] MEDS: INSULIN ASPART [NOVOLOG] 3 ML PEN SC SCH ×4 (08:00→20:50)
[2016-11-19] MEDS ORDERED: POTASSIUM CHLORIDE (SR) 20 MEQ TAB PO STA (08:54)
[2016-11-19] MEDS: CREON (24K-76K-120K) 1 CAP PO SCH ×3 (09:02→17:20)
[2016-11-19] MEDS: metFORMIN 500 MG TAB PO SCH ×2 (09:03→17:20)
[2016-11-19 09:07] VITALS: BP 133/61; PULSE 89
[2016-11-19] MEDS: TRIAMCINOLONE ACET 0.1% 15 GM CR TOP SCH ×2 (09:16→20:45)
[2016-11-19] MEDS: HEPARIN 5,000 UNIT/0.5 ML SYG SC SCH ×2 (09:16→20:49)
[2016-11-19] MEDS: AMLODIPINE 10 MG TAB PO SCH (09:17)
[2016-11-19] MEDS: LOSARTAN 50 MG TAB PO SCH (09:18)
[2016-11-19] MEDS: HYDROCHLOROTHIAZIDE 25 MG TAB PO SCH (09:18)
[2016-11-19] MEDS: LINAGLIPTIN 5 MG TABLET PO SCH (09:18)
[2016-11-19] MEDS: FUROSEMIDE 20 MG TAB PO SCH (09:19)
[2016-11-19] MEDS: POTASSIUM CHLORIDE (SR) 8 MEQ CAP PO SCH (09:19)
[2016-11-19] MEDS ORDERED: POTASSIUM CHLORIDE 250 ML IVPB ONE (10:00)
[2016-11-19] MEDS: DEXTROSE 5%-0.45% NACL 1,000 ML IV SCH (13:10)
--- NOTE | 2016-11-19 14:20 | PN ---
Date/Time of Note Date/Time of Note DATE: 11/19/16 TIME: 14:18 Assessment/Plan VTE Prophylaxis VTE Prophylaxis Intervention: heparin Lines/Catheters IV Catheter Type (from Nrs): Peripheral IV Assessment/Plan Chief Complaint/Hosp Course 1. Acute on Chronic Encephalopathy -UA suggests no infection -Neurochecks -cont sitter -Palliative Care on case, has been unable to get a hold of family -Diet has been downgraded to a Dysphagia diet 2/ AMS, ST eval 2. 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 4. Hx of HTN -resume Home meds 5. Hx of DM -start SubQ Insulin -check A1C 6. Macrocytosis -B12 and Folate are nl PPx- Heparin Problems: Subjective 24 Hr Interval Summary Constitutional: disoriented Exam/Review of Systems Vital Signs Vitals Vital Signs Date Time Temp Pulse Resp B/P Pulse Ox O2 Delivery O2 Flow Rate FiO2 11/19/16 09:07 89 133/61 11/19/16 07:23 98.3 18 95 11/16/16 00:00 Room Air Intake and Output 11/18/16 11/18/16 11/19/16 15:00 23:00 07:00 Intake Total 200 ml 865 ml 330 ml Balance 200 ml 865 ml 330 ml Exam Psych: confusion Respiratory: clear to auscultation Cardiovascular: regular rate and rhythm Gastrointestinal: soft, No distended Musculoskeletal: nl extremities to inspection Results Result Diagram: 11/19/16 0711/19/16 0705 Results 24 hrs Laboratory Tests Test 11/18/16 17:59 11/18/16 20:06 11/18/16 20:37 11/19/16 03:37 Bedside Glucose 188 256 H 64 L Urine Bacteria FEW Urine Bilirubin NEGATIVE Urine Clarity CLEAR Urine Color LT. YELLOW Urine Glucose NEGATIVE Urine Hemoglobin 2+ H Urine Ketones NEGATIVE Urine Leukocyte Esterase NEGATIVE Urine Microscopic RBC 2-5 Urine Microscopic WBC 0-2 Urine Nitrite NEGATIVE Urine Specific Mcf[place] 1.020 Urine Squamous Epithelial Cells MODERATE Urine Total Protein 1+ H Urine Urobilinogen 0.2 E.U./dL Urine pH 6.5 Test 11/19/16 03:39 11/19/16 07:05 11/19/16 08:07 11/19/16 12:15 Bedside Glucose 115 81 169 Anion Gap 16 Basophils # 0.0 Basophils % 0.0 Blood Morphology Comment Blood Urea Nitrogen 14 Calcium Level 8.6 Carbon Dioxide Level 23 Chloride Level 104 Creatinine 0.58 Eosinophils # 0.0 Eosinophils % 0.2 Glucose Level 77 # Hematocrit 35.9 L Hemoglobin 12.3 Lymphocytes # 1.3 Lymphocytes % 9.5 L Mean Corpuscular Hemoglobin 34.9 H Mean Corpuscular Hemoglobin Concent 34.3 Mean Corpuscular Volume 101.7 H Mean Platelet Volume 7.9 Monocytes # 0.5 Monocytes % 3.7 Neutrophils # 11.7 H Neutrophils % 86.6 H Nucleated Red Blood Cells # 0.0 Nucleated Red Blood Cells % 0.0 Platelet Count 297 Potassium Level 2.8 *L Red Blood Count 3.53 L Red Cell Distribution Width 14.3 Sodium Level 140 White Blood Count 13.5 #H Medications Medications Current Medications Haloperidol (Haldol) 2 mg Q6H PRN IM AGITATION/ANXIETY Last administered on 23:19; Admin Dose 2 MG; Start 11/16/16 at 01:00 Acetaminophen (Tylenol Tab) 650 mg Q6H PRN PO PAIN AND OR ELEVATED TEMP Last administered on 11/16/16 06:15; Admin Dose 650 MG; Start 11/16/16 at 05:00 Ondansetron HCl 4 mg 4 mg Q4H PRN IV NAUSEA AND/OR VOMITING; Start 11/16/16 at 05:00 Dextrose/Sodium Chloride (D5-1/2ns) 1,000 ml @ 75 mls/hr [id number] IV Last administered on 11/19/16 13:10; Admin Dose 75 MLS/HR; Start 11/16/16 at 05:00 Heparin Sodium (Porcine) (Heparin (5000 Units/0.5 ml)) 5,000 unit BID SC Last administered on 11/19/16 09:16; Admin Dose 5,000 UNIT; Start 11/16/16 at 09:00 Morphine Sulfate (morphine) 2 mg Q3H PRN IV PAIN LEVEL 6-10; Start 11/16/16 at 12:00 Insulin Glargine (Lantus) 10 unit HS SC Last administered on 11/18/16 21:26; Admin Dose 10 UNIT; Start 11/17/16 at 21:00 Carvedilol (Coreg) 6.25 mg BID PO Last administered on 11/19/16 09:16; Admin Dose 6.25 MG; Start 11/17/16 at 10:00 Furosemide (Lasix) 20 mg DAILY PO Last administered on 11/19/16 09:19; Admin Dose 20 MG; Start 11/18/16 at 09:00 Potassium Chloride (Micro-K) 8 meq DAILY PO Last administered on 11/19/16 09: 19; Admin Dose 8 MEQ; Start 11/18/16 at 09:00 Triamcinolone Acetonide (Kenalog 0.1% Cr) 1 applic BID TOP Last administered on 11/19/16 09:16; Admin Dose 1 APPLIC; Start 11/17/16 at 21:00 Losartan Potassium (Cozaar) 150 mg DAILY PO Last administered on 11/19/16 09: 18; Admin Dose 150 MG; Start 11/18/16 at 09:00 Pantoprazole (Protonix Tab) 40 mg DAILY@06 PO ; Start 11/18/16 at 06:00 Atorvastatin Calcium (Lipitor) 10 mg DAILY@21 PO ; Start 11/17/16 at 21:00 Linagliptin (Tradjenta) 5 mg DAILY PO Last administered on 11/19/16 09:18; Admin Dose 5 MG; Start 11/18/16 at 09:00 Miscellaneous Information 1 ea NOTE XX ; Start 11/17/16 at 10:30 Glucose (Glutose) 15 gm Q15M PRN PO DECREASED GLUCOSE; Start 11/17/16 at 10:30 Glucose (Glutose) 22.5 gm Q15M PRN PO DECREASED GLUCOSE; Start 11/17/16 at 10: 30 Dextrose (D50w Syringe) 25 ml Q15M PRN IV DECREASED GLUCOSE; Start 11/17/16 at 10:30 Dextrose (D50w Syringe) 50 ml Q15M PRN IV DECREASED GLUCOSE; Start 11/17/16 at 10:30 Glucagon (Glucagen) 1 mg Q15M PRN IM DECREASED GLUCOSE; Start 11/17/16 at 10:30 Glucose (Glutose) 15 gm Q15M PRN BUCCAL DECREASED GLUCOSE; Start 11/17/16 at 10 :30 Amlodipine Besylate (Norvasc) 10 mg DAILY PO Last administered on 11/19/16 09: 17; Admin Dose 10 MG; Start 11/18/16 at 09:00 Hydrochlorothiazide (Hydrochlorothiazide) 25 mg DAILY PO Last administered on 09:18; Admin Dose 25 MG; Start 11/18/16 at 09:00 Diagnostic Test (Pha) (Accucheck) 1 ea 02 XX Last administered on 11/19/16 02: 00; Admin Dose 1 EA; Start 11/18/16 at 02:00 Hydralazine HCl (Apresoline) 10 mg Q4H PRN IV b/p > 160 Last administered on 21:31; Admin Dose 10 MG; Start 11/17/16 at 21:30 BONNY GIRON Nov 19, 2016 14:20
[2016-11-19 19:30] VITALS: BP 115/57; RESP 18
[2016-11-19] MEDS: ACETAMINOPHEN 325 MG TAB PO PRN (20:45)
[2016-11-19] MEDS: ATORVASTATIN 10 MG TAB PO SCH (20:45)
[2016-11-19] MEDS: INSULIN GLARGINE [LANtus] 3 ML PEN SC SCH (20:49)
[2016-11-19 22:01] VITALS: BP 102/51; PULSE 68
[2016-11-20] MEDS: HALOPERIDOL 5 MG INJ IM PRN (00:18)
[2016-11-20] MEDS: ACCUCHECK XX SCH (01:48)
[2016-11-20] MEDS: DEXTROSE 5%-0.45% NACL 1,000 ML IV SCH ×2 (02:20→09:54)
[2016-11-20] MEDS: PANTOPRAZOLE (EC) 40 MG TAB PO SCH ×2 (06:20→09:26)
[2016-11-20 07:03] LABS: BASOPHILS % 0.3 % (0.0-2.0); EOSINOPHILS # 0.1 10^3/ul (0.0-0.5); EOSINOPHILS % 0.6 % (0.0-7.0); HEMATOCRIT 34.5 % (37.0-47.0); HEMOGLOBIN 11.9 g/dl (12.0-16.0); LYMPHOCYTES # 1.5 10^3/ul (0.8-2.9); LYMPHOCYTES % 11.5 % (15.0-51.0); MEAN CORPUSCULAR HEMOGLOBIN 35.1 pg (29.0-33.0); MEAN CORPUSCULAR HGB CONC 34.5 g/dl (32.0-37.0); MEAN CORPUSCULAR VOLUME 101.8 fl (82.0-101.0); MEAN PLATELET VOLUME 8.3 fl (7.4-10.4); MONOCYTE # 0.7 10^3/ul (0.3-0.9); NEUTROPHILS % 82.6 % (39.0-77.0); PLATELET COUNT 303 10^3/UL (140-440); RED BLOOD COUNT 3.39 10^6/ul (4.20-5.40); UNCORRECTED WBC 13.3 10^3/ul (4.8-10.8); WHITE BLOOD COUNT 13.3 10^3/ul (4.8-10.8)
[2016-11-20 07:07] LABS: CONDITION 1; LH ANALYZER COMMENTS 1
[2016-11-20 07:13] LABS: CALCIUM 8.9 mg/dl (8.4-10.2); CREATININE 0.59 mg/dl (0.44-1.00); MAGNESIUM 1.7 mg/dl (1.7-2.5); POTASSIUM 3.5 mmol/L (3.5-5.1)
[2016-11-20 07:52] VITALS: BP 140/66; RESP 16
[2016-11-20] MEDS: CREON (24K-76K-120K) 1 CAP PO SCH ×3 (09:25→17:50)
[2016-11-20] MEDS: LOSARTAN 50 MG TAB PO SCH (09:26)
[2016-11-20] MEDS: FUROSEMIDE 20 MG TAB PO SCH (09:27)
[2016-11-20] MEDS: POTASSIUM CHLORIDE (SR) 8 MEQ CAP PO SCH (09:27)
[2016-11-20] MEDS: LINAGLIPTIN 5 MG TABLET PO SCH (09:27)
[2016-11-20] MEDS: HYDROCHLOROTHIAZIDE 25 MG TAB PO SCH (09:27)
[2016-11-20] MEDS: metFORMIN 500 MG TAB PO SCH ×2 (09:27→17:50)
[2016-11-20] MEDS: TRIAMCINOLONE ACET 0.1% 15 GM CR TOP SCH ×2 (09:28→21:30)
[2016-11-20] MEDS: AMLODIPINE 10 MG TAB PO SCH (09:33)
[2016-11-20] MEDS: HEPARIN 5,000 UNIT/0.5 ML SYG SC SCH ×2 (09:35→21:29)
[2016-11-20] MEDS: INSULIN ASPART [NOVOLOG] 3 ML PEN SC SCH ×4 (09:36→21:00)
--- NOTE | 2016-11-20 14:34 | PN ---
Date/Time of Note Date/Time of Note DATE: 11/20/16 TIME: 14:21 Assessment/Plan VTE Prophylaxis VTE Prophylaxis Intervention: heparin Lines/Catheters IV Catheter Type (from Nrsg): Peripheral IV Assessment/Plan Assessment/Plan 1. 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 Leukocytosis, unclear source, check CXR 3. 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 HTN-resume Home meds 6.DM-start SubQ Insulin 7. PPx- Heparin Subjective 24 Hr Interval Summary Free Text/Dictation confused Exam/Review of Systems Vital Signs Vitals Vital Signs Date Time Temp Pulse Resp B/P Pulse Ox O2 Delivery O2 Flow Rate FiO2 11/20/16 07:52 97.0 67 16 140/66 93 Intake and Output 11/19/16 11/19/16 11/20/16 15:00 23:00 07:00 Intake Total 475 ml 1620 ml 1027.5 ml Balance 475 ml 1620 ml 1027.5 ml Exam Constitutional: alert, well developed Head: normocephalic Eyes: EOMI, PERRL, nl conjunctiva, nl lids ENMT: nl external ears & nose, nl lips & teeth, nl nasal mucosa & septum Neck: non-tender, supple Respiratory: clear to auscultation, normal air movement, No congested cough, No crackles/rales, No diminished breath sounds, No intercostal retraction, No labored breathing, No other, No respirations, No tactile fremitus, No wheezing Cardiovascular: nl pulses, regular rate and rhythm, systolic murmur (G III/6 SM at apex) Gastrointestinal: nl liver, spleen, non-tender, soft Musculoskeletal: nl extremities to inspection Extremities: normal pulses, No calf tenderness, No clubbing, No cyanosis, No edema, No other, No palpable cord, No pitting pedal edema, No tenderness Neurological: [employer] II-XII intact, nl mental status, nl speech, nl strength Lymph: nl lymph nodes Results Result Diagram: 11/20/16 0540 11/20/16 0540 Results 24 hrs Laboratory Tests Test 11/19/16 17:19 11/19/16 20:44 11/20/16 01:33 11/20/16 05:40 Bedside Glucose 197 249 H 157 Anion Gap 15 Basophils # 0.0 Basophils % 0.3 Blood Morphology Comment Blood Urea Nitrogen 14 Calcium Level 8.9 Carbon Dioxide Level 23 Chloride Level 105 Creatinine 0.59 Eosinophils # 0.1 Eosinophils % 0.6 Glucose Level 142 # Hematocrit 34.5 L Hemoglobin 11.9 L Lymphocytes # 1.5 Lymphocytes % 11.5 L Magnesium Level 1.7 Mean Corpuscular Hemoglobin 35.1 H Mean Corpuscular Hemoglobin Concent 34.5 Mean Corpuscular Volume 101.8 H Mean Platelet Volume 8.3 Monocytes # 0.7 Monocytes % 5.0 Neutrophils # 11.0 H Neutrophils % 82.6 H Nucleated Red Blood Cells # 0.0 Nucleated Red Blood Cells % 0.0 Platelet Count 303 Potassium Level 3.5 Red Blood Count 3.39 L Red Cell Distribution Width 14.0 Sodium Level 139 White Blood Count 13.3 H Test 11/20/16 07:45 11/20/16 11:58 Bedside Glucose 141 202 Medications Medications Current Medications Haloperidol (Haldol) 2 mg Q6H PRN IM AGITATION/ANXIETY Last administered on 00:18; Admin Dose 2 MG; Start 11/16/16 at 01:00 Acetaminophen (Tylenol Tab) 650 mg Q6H PRN PO PAIN AND OR ELEVATED TEMP Last administered on 11/19/16 20:45; Admin Dose 650 MG; Start 11/16/16 at 05:00 Ondansetron HCl 4 mg 4 mg Q4H PRN IV NAUSEA AND/OR VOMITING; Start 11/16/16 at 05:00 Dextrose/Sodium Chloride (D5-1/2ns) 1,000 ml @ 75 mls/hr [id number] IV Last administered on 11/20/16 09:54; Admin Dose 75 MLS/HR; Start 11/16/16 at 05:00 Heparin Sodium (Porcine) (Heparin (5000 Units/0.5 ml)) 5,000 unit BID SC Last administered on 11/20/16 09:35; Admin Dose 5,000 UNIT; Start 11/16/16 at 09:00 Morphine Sulfate (morphine) 2 mg Q3H PRN IV PAIN LEVEL 6-10; Start 11/16/16 at 12:00 Insulin Glargine (Lantus) 10 unit HS SC Last administered on 11/19/16 20:49; Admin Dose 10 UNIT; Start 11/17/16 at 21:00 Carvedilol (Coreg) 6.25 mg BID PO Last administered on 11/20/16 09:26; Admin Dose 6.25 MG; Start 11/17/16 at 10:00 Furosemide (Lasix) 20 mg DAILY PO Last administered on 11/20/16 09:27; Admin Dose 20 MG; Start 11/18/16 at 09:00 Potassium Chloride (Micro-K) 8 meq DAILY PO Last administered on 11/20/16 09: 27; Admin Dose 8 MEQ; Start 11/18/16 at 09:00 Triamcinolone Acetonide (Kenalog 0.1% Cr) 1 applic BID TOP Last administered on 11/20/16 09:28; Admin Dose 1 APPLIC; Start 11/17/16 at 21:00 Losartan Potassium (Cozaar) 150 mg DAILY PO Last administered on 11/20/16 09: 26; Admin Dose 150 MG; Start 11/18/16 at 09:00 Pantoprazole (Protonix Tab) 40 mg DAILY@06 PO Last administered on 11/20/16 09 :26; Admin Dose 40 MG; Start 11/18/16 at 06:00 Atorvastatin Calcium (Lipitor) 10 mg DAILY@21 PO Last administered on 20:45; Admin Dose 10 MG; Start 11/17/16 at 21:00 Linagliptin (Tradjenta) 5 mg DAILY PO Last administered on 11/20/16 09:27; Admin Dose 5 MG; Start 11/18/16 at 09:00 Miscellaneous Information 1 ea NOTE XX ; Start 11/17/16 at 10:30 Glucose (Glutose) 15 gm Q15M PRN PO DECREASED GLUCOSE; Start 11/17/16 at 10:30 Glucose (Glutose) 22.5 gm Q15M PRN PO DECREASED GLUCOSE; Start 11/17/16 at 10: 30 Dextrose (D50w Syringe) 25 ml Q15M PRN IV DECREASED GLUCOSE; Start 11/17/16 at 10:30 Dextrose (D50w Syringe) 50 ml Q15M PRN IV DECREASED GLUCOSE; Start 11/17/16 at 10:30 Glucagon (Glucagen) 1 mg Q15M PRN IM DECREASED GLUCOSE; Start 11/17/16 at 10:30 Glucose (Glutose) 15 gm Q15M PRN BUCCAL DECREASED GLUCOSE; Start 11/17/16 at 10 :30 Amlodipine Besylate (Norvasc) 10 mg DAILY PO Last administered on 11/20/16 09: 33; Admin Dose 10 MG; Start 11/18/16 at 09:00 Hydrochlorothiazide (Hydrochlorothiazide) 25 mg DAILY PO Last administered on 09:27; Admin Dose 25 MG; Start 11/18/16 at 09:00 Diagnostic Test (Pha) (Accucheck) 1 ea 02 XX Last administered on 11/20/16 01: 48; Admin Dose 1 EA; Start 11/18/16 at 02:00 Hydralazine HCl (Apresoline) 10 mg Q4H PRN IV b/p > 160 Last administered on 21:31; Admin Dose 10 MG; Start 11/17/16 at 21:30 JULIO ORANTES MD Nov 20, 2016 14:34
--- NOTE | 2016-11-20 15:57 | RADRPT ---
PROCEDURE: US Carotids. CLINICAL INDICATION: bruit TECHNIQUE: Multiple sonographic of the carotid bifurcation region and vertebral arteries were obta ined utilizing hollis scale, duplex and color-flow imaging. The images were reviewed on a PACS worksta tion. COMPARISON: No prior studies are available for comparison. FINDINGS: Evaluation of the right carotid bifurcation region reveals mild to moderate calcific atherosclerotic disease. Evaluation of the left carotid bifurcation region reveals mild calcific atherosclerotic disease. There is antegrade flow within the vertebral arteries bilaterally. RIGHT CAROTID MEASUREMENTS: Common Carotid Tntdib54.5 (cm/sec) Internal Carotid Artery - exnvcnkx66.9 (cm/sec) Internal Carotid Artery - mid53.5 (cm/sec) Internal Carotid Artery - autrux42.1 (cm/sec) Internal Carotid/Common Carotid1.14 LEFT CAROTID MEASUREMENTS: Common Carotid Laszkl11.8 (cm/sec) Internal Carotid Artery - hegrqehx86.5 (cm/sec) Internal Carotid Artery - mid39.8 (cm/sec) Internal Carotid Artery - tdgqqi97.3 (cm/sec) Internal Carotid/Common Carotid0.56 RPTAT: AA IMPRESSION: No evidence for hemodynamically significant stenosis in the bilateral internal carotid arteries - va lidated velocity measurements with angiographic measurements, velocity criteria are extrapolated fro m diameter data as defined by the Society of Radiologists in Ultrasound Consensus Conference Radiolo gy 2003; 229;340-346. This study does indirectly reference the measurement of the distal ICA diamet er as the denominator for stenosis measurement. Normal antegrade flow in the vertebral arteries bilaterally. .Gage Pearson MD, MD Date Time Electronically viewed and signed by .Gage Pearson MD, on 11/20/2016 15:57 .S/
--- NOTE | 2016-11-20 16:27 | RADRPT ---
PROCEDURE: XR Chest. CLINICAL INDICATION: Dyspnea. Rule out pneumonia. TECHNIQUE: Single frontal chest x-ray. COMPARISON: 09/06/2016 FINDINGS: The lungs are clear of acute infiltrates, edema, effusions, or masses. Bibasilar atelectatic changes are present. Prominent interstitial markings are present likely chronic or senescent in nature. Jorge cific atherosclerosis of the aorta is present.. Cardiomegaly is unchanged. There is elevation of t he right hemidiaphragm.. The osseous structures are intact. IMPRESSION: No acute cardiopulmonary disease. Elevated right hemidiaphragm with mild bibasilar atelectasis. Senescent changes of the chest. RPTAT: GG .Tino Carr MD, Date Time Electronically viewed and signed by .Tino Carr MD, on 11/20/2016 16:27 .L/
--- NOTE | 2016-11-20 17:31 | RADRPT ---
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 Physician: JULIO ORANTES Quality: Adequate Procedures: Transthoracic echocardiogram with complete 2D, M-Mode, and doppler examination. Indications: Heart Murmur. 2D/M Mode Doppler Measurement Value Normal Ranges Measurement Value Normal Ranges LVIDd 2D 4.7 3.5 - 5.6 cm TERRY Vmax 0.4 cm2 LVIDs 2D 3.4 2.1 - 4.1 cm TERRY VTI 0.4 cm2 IVSd 2D 1.2 0.6 - 1.1 cm AV Mean Travis 2.3 m/sec AoR Diam 2D 2.3 2.0 - 3.7 cm AV Mean PG 27.2 mmHg EF 2D 51.0 50.0 - 65.0 % AV Peak Travis 3.6 m/sec LA Dimen 2D 3.8 2.3 - 4.0 cm AV Peak PG 51.2 mmHg AV VTI 83.0 cm LVOT Mean Travis 0.8 m/sec LVOT Mean PG 3.1 mmHg LVOT Peak Travis 1.2 m/sec LVOT Peak PG 5.5 mmHg LVOT VTI 33.0 cm MV E Peak Travis 0.6 m/sec MV A Peak Travis 1.2 m/sec MV E/A 0.5 MV Decel Time 265 msec MV Decel [place] 2 MV E/A 0.5 TR Peak Travis 2.7 m/sec TR Peak PG 28.4 mmHg Findings Left Ventricle: Hyperdynamic left ventricular systolic function. Normal left ventricular cavity size. Mild concentric left ventricular hypertrophy. Ejection fraction is visually estimated at 70 %. Tissue Doppler/Mitral Doppler indices are consistent with impaired relaxation (Stage I diastolic dysfunction). Right Ventricle: Normal right ventricular size. Normal right ventricular systolic function. Left Atrium: The left atrium is normal in size. Right Atrium: The right atrium is normal in size. Mitral Valve: Mild mitral leaflet calcification. Mild mitral annular calcification. Aortic Valve: Severe aortic stenosis. Aortic valve Max velocity 3.58 m/sec. Max PG 51.20 mmHg. Mean PG 27.20 mmHg. Aortic cusps appear moderately calcified. Tricuspid Valve: Estimated peak PA systolic pressure 31 mmHg. There is trace tricuspid regurgitation. Pulmonic Valve: There is trace pulmonic regurgitation. Pericardium: Normal pericardium with no significant pericardial effusion. Aorta: Normal aortic root. IVC: Normal size and normal respiratory collapse consistent with normal right atrial pressure. Conclusions 1.Hyperdynamic left ventricular systolic function. Normal left ventricular cavity size. Mild concentric left ventricular hypertrophy. Ejection fraction is visually estimated at 70 %. Tissue Doppler/Mitral Doppler indices are consistent with impaired relaxation (Stage I diastolic dysfunction). 2.Mild mitral leaflet calcification. Mild mitral annular calcification. 3.Severe aortic stenosis. Aortic valve Max velocity 3.58 m/sec. Max PG 51.20 mmHg. Mean PG 27.20 mmHg. Aortic cusps appear moderately calcified. 4.Estimated peak PA systolic pressure 31 mmHg. There is trace tricuspid regurgitation. Electronically Signed By: Juan Chowdhury 20-Nov-2016 17:30:45 -0800 Patient Name: YUNIER VICENTE Study Date: 20-Nov-2016 [id number]
[2016-11-20] MEDS: ATORVASTATIN 10 MG TAB PO SCH (21:20)
[2016-11-20] MEDS: INSULIN GLARGINE [LANtus] 3 ML PEN SC SCH (21:29)
[2016-11-20 21:35] VITALS: BP 162/72; PULSE 84
[2016-11-20 22:30] VITALS: BP 132/84
[2016-11-21] MEDS: ACCUCHECK XX SCH (02:00)
[2016-11-21] MEDS: DEXTROSE 5%-0.45% NACL 1,000 ML IV SCH (02:17)
[2016-11-21] MEDS ORDERED: DIPHENHYDRAMINE 25 MG CAP PO PRN (03:30)
[2016-11-21 07:45] VITALS: BP 165/60; RESP 20
[2016-11-21] MEDS: INSULIN ASPART [NOVOLOG] 3 ML PEN SC SCH ×4 (08:00→21:09)
[2016-11-21] MEDS: metFORMIN 500 MG TAB PO SCH ×2 (09:04→17:57)
[2016-11-21] MEDS: CREON (24K-76K-120K) 1 CAP PO SCH ×3 (09:04→17:57)
[2016-11-21] MEDS: FUROSEMIDE 20 MG TAB PO SCH (09:05)
[2016-11-21] MEDS: HYDROCHLOROTHIAZIDE 25 MG TAB PO SCH (09:06)
[2016-11-21] MEDS: LOSARTAN 50 MG TAB PO SCH (09:06)
[2016-11-21] MEDS: LINAGLIPTIN 5 MG TABLET PO SCH (09:07)
[2016-11-21] MEDS: POTASSIUM CHLORIDE (SR) 8 MEQ CAP PO SCH (09:07)
[2016-11-21] MEDS: AMLODIPINE 10 MG TAB PO SCH (09:07)
[2016-11-21] MEDS: HEPARIN 5,000 UNIT/0.5 ML SYG SC SCH ×2 (09:08→21:00)
[2016-11-21 09:15] VITALS: BP 140/66; RESP 18
[2016-11-21] MEDS: TRIAMCINOLONE ACET 0.1% 15 GM CR TOP SCH ×2 (09:19→21:00)
[2016-11-21 11:40] VITALS: BP 142/58; RESP 18
--- NOTE | 2016-11-21 16:12 | DS ---
Date/Time of Note Date/Time of Note DATE: 11/21/16 TIME: 16:01 Discharge Summary Admission/Discharge Info Admit Date/Time Nov 15, 2016 at 19:16 Discharge Date/Time Final Diagnosis 1. 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 Dementia, stable, follow up with PCP 3. 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 HTN-resume Home meds 6.DM-controlled, follow up with PCP Patient Condition: Stable Hx of Present Illness 89-year-old female with hx of HTN, DM, SDH, CVA and dementia who presents via EMS after mechanical trip and fall. The patient was walking on gravel slipped and fell. The patient hit her head and has an occipital scalp laceration. She is accompanied by her son. She has a history of dementia. After period of time the son noted that the patient had recently been discharged from assisted living facility. She lives at home alone and her is hospitalized. He feels that the patient cannot care for herself and she has been falling frequently. ER Course: Brain CT showed chronic SDH and chronic infarct. 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 No specific treatment for the small subdural hematoma. For work up of recurrent falls, Carotid ultrasound no significant carotid stenosis. Echo revealed severe aortic stenosis but she is not a candidate for aortic valvular replacement. The fall is most likely a balance issue from age and weakness of muscles. 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 Physician: JULIO ORANTES Quality: Adequate Procedures: Transthoracic echocardiogram with complete 2D, M-Mode, and doppler examination. Indications: Heart Murmur. 2D/M Mode Doppler Measurement Value Normal Ranges Measurement Value Normal Ranges LVIDd 2D 4.7 3.5 - 5.6 cm TERRY Vmax 0.4 cm2 LVIDs 2D 3.4 2.1 - 4.1 cm TERRY VTI 0.4 cm2 IVSd 2D 1.2 0.6 - 1.1 cm AV Mean Travis 2.3 m/sec AoR Diam 2D 2.3 2.0 - 3.7 cm AV Mean PG 27.2 mmHg EF 2D 51.0 50.0 - 65.0 % AV Peak Travis 3.6 m/sec LA Dimen 2D 3.8 2.3 - 4.0 cm AV Peak PG 51.2 mmHg AV VTI 83.0 cm LVOT Mean Travis 0.8 m/sec LVOT Mean PG 3.1 mmHg LVOT Peak Travis 1.2 m/sec LVOT Peak PG 5.5 mmHg LVOT VTI 33.0 cm MV E Peak Travis 0.6 m/sec MV A Peak Travis 1.2 m/sec MV E/A 0.5 MV Decel Time 265 msec MV Decel [place] 2 MV E/A 0.5 TR Peak Travis 2.7 m/sec TR Peak PG 28.4 mmHg Findings Left Ventricle: Hyperdynamic left ventricular systolic function. Normal left ventricular cavity size. Mild concentric left ventricular hypertrophy. Ejection fraction is visually estimated at 70 %. Tissue Doppler/Mitral Doppler indices are consistent with impaired relaxation (Stage I diastolic dysfunction). Right Ventricle: Normal right ventricular size. Normal right ventricular systolic function. Left Atrium: The left atrium is normal in size. Right Atrium: The right atrium is normal in size. Mitral Valve: Mild mitral leaflet calcification. Mild mitral annular calcification. Aortic Valve: Severe aortic stenosis. Aortic valve Max velocity 3.58 m/sec. Max PG 51.20 mmHg. Mean PG 27.20 mmHg. Aortic cusps appear moderately calcified. Tricuspid Valve: Estimated peak PA systolic pressure 31 mmHg. There is trace tricuspid regurgitation. Pulmonic Valve: There is trace pulmonic regurgitation. Pericardium: Normal pericardium with no significant pericardial effusion. Aorta: Normal aortic root. IVC: Normal size and normal respiratory collapse consistent with normal right atrial pressure. Conclusions 1. Hyperdynamic left ventricular systolic function. Normal left ventricular cavity size. Mild concentric left ventricular hypertrophy. Ejection fraction is visually estimated at 70 %. Tissue Doppler/Mitral Doppler indices are consistent with impaired relaxation (Stage I diastolic dysfunction). 2. Mild mitral leaflet calcification. Mild mitral annular calcification. 3. Severe aortic stenosis. Aortic valve Max velocity 3.58 m/sec. Max PG 51.20 mmHg. Mean PG 27.20 mmHg. Aortic cusps appear moderately calcified. 4. Estimated peak PA systolic pressure 31 mmHg. There is trace tricuspid regurgitation. Electronically Signed By: Juan Chowdhury 20-Nov-2016 17:30:45 -0800 Patient Name: YUNIER VICENTE Study Date: 20-Nov-2016 [id number] [place] [id number] Radiology Main Line: [phone] DIAGNOSTIC IMAGING REPORT Patient: YUNIER VICENTE : 1925 Age: 89 Sex: F MR #: [id number] [facility] #: [id number] DOS: 11/15/16 1358 Ordering MD: MITCH CASTRO MD Location: E/R Room/Bed: PROCEDURE: CT Brain without. CLINICAL INDICATION: Trauma. TECHNIQUE: A CT of the brain was performed on multidetector high-resolution CT scanner utilizing axial sections from the skull base through the vertex without contrast. The scan was reviewed in soft tissue brain and high frequency resolution bone algorithm windows. Images were reviewed on a high- resolution PACS workstation. One or more the following does reduction techniques were utilized: Automated exposure control, adjustment of the mA/ or kV according to patient's size, or use of iterative reconstruction technique. The exam CTDI = 45.01 mGy and the DLP = 90.03 mGy-cm. COMPARISON: Brain CT 09/06/2015. 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 The ventricles and sulci are mildly prominent indicative of volume loss. There is no acute intracranial hemorrhage, mass effect or midline shift. The hollis/ white matter differentiation is preserved. Small old infarct in the right cerebellum is again noted. Chronic lacunar infarct within the left inferior basal ganglia as well as old pontine infarct are noted. There are moderate scattered foci of hypoattenuation in the white matter, which are nonspecific in etiology but likely reflect chronic small vessel ischemic changes. There are moderate intracranial vascular calcifications consistent with atherosclerosis. The visualized paranasal sinuses are essentially clear. There is thinning of bilateral lens indicative of prior lens replacement. IMPRESSION: 1. 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 2. No acute intracranial hemorrhage, transcortical infarction or midline shift. 3. Moderate intracranial atherosclerosis and chronic small vessel ischemic changes. 4. 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 5. Mild generalized cerebral volume loss. RPTAT: HH .Arley Bhat MD, MD Date Time Electronically viewed and signed by .Arley Bhat MD, on 11/15/2016 17: 27 .N/ CC: MITCH CASTRO MD [facility] Meds Active Scripts Insulin Glargine* (Lantus*) 100 Unit/Ml Soln, 15 UNIT SC HS for 14 Days, EA Prov:EVER LENZ MD 09/07/15 Insulin Aspart* (Novolog Insulin Pen*) 100 Unit/Ml Soln, 0 UNIT SC AC MEALS AND BEDTIME for 14 Days Prov:EVER LENZ MD 09/07/15 Reported Medications Jslpjyytks-Bemdeiebma-BMZH (Tribenzor) 40-10-25 Mg Tablet, 1 TAB PO DAILY, TAB 11/15/16 Triamcinolone Acetonide* (Kenalog*) 0.1%-15GM Cr, 1 APPLIC TOP BID, #1 TUB 11/15/16 Sitagliptin Phos/Metformin HCl (Janumet 50-500 mg Tablet) 1 Each Tablet, 1 EACH PO BID, TAB 11/15/16 Fjdgpm-Tfpehmyf-Cawxsgw* (Joseph LEAVITT* 24,000) 24,000 L-76,000-120,000 Unit Capsule.dr, 1 CAP PO WITH MEALS, CAP 11/15/16 Carvedilol* (Carvedilol*) 12.5 Mg Tablet, 12.5 MG PO DAILY, #60 TAB 11/15/16 Potassium Chloride* (Potassium Chloride*) 8 Meq Capsule.er, 8 MEQ PO DAILY, CAP 11/15/16 Furosemide* (Furosemide*) 20 Mg Tablet, 20 MG PO DAILY, #60 TAB 11/15/16 Clopidogrel Bisulfate* (Clopidogrel Bisulfate*) 75 Mg Tablet, 75 MG PO DAILY, # 30 TAB 11/15/16 Simvastatin* (Zocor*) 20 Mg Tablet, 20 MG PO QHS, #30 TAB 11/15/16 Celecoxib* (Celebrex*) 200 Mg Capsule, 200 MG PO DAILY, CAP 11/15/16 Omeprazole* (Omeprazole*) 40 Mg Capsule.dr, 40 MG PO DAILY, #30 CAP 11/15/16 Discontinued Scripts Oseltamivir Phosphate* (Tamiflu*) 75 Mg Capsule, 75 MG PO BID for 5 Days, CAP Prov:BONNY GIRON 09/07/16 Sennosides* (Senokot*) 1 Tab Tab, 2 TAB PO BID for 14 Days, TAB Prov:EVER LENZ MD 09/07/15 Metoprolol Tartrate* (Lopressor*) 25 Mg Tab, 25 MG PO BID for 14 Days, TAB Prov:EVER LENZ MD 09/07/15 Losartan Potassium* (Cozaar*) 50 Mg Tab, 100 MG PO DAILY for 14 Days, TAB Prov:EVER LENZ MD 09/07/15 Hydralazine Hcl* (Hydralazine Hcl*) 25 Mg Tab, 50 MG PO Q8 for 14 Days, TAB Prov:EVER LENZ MD 09/07/15 Docusate Sodium* (Colace*) 100 Mg Cap, 100 MG PO BID for 14 Days, CAP Prov:EVER LENZ MD 09/07/15 Acetaminophen (MAPAP) 325 Mg Tab, 650 MG PO Q6H Y for PAIN LEVEL 1-3 OR FEVER for 14 Days, TAB Prov:EVER LENZ MD 09/07/15 Follow-up Plan follow up with PCP 1- weeks Pending Labs Laboratory Tests Test 11/20/16 17:16 11/20/16 21:16 11/21/16 07:46 11/21/16 11:20 Bedside Glucose 220mg/dL (70-220) 179mg/dL (70-220) 129mg/dL (70-220) 301mg/dL (70-220) JULIO ORANTES MD Nov 21, 2016 16:12
[2016-11-21] MEDS ORDERED: LEVOFLOXACIN 500 MG TAB PO ONE (17:00)
[2016-11-21 20:44] VITALS: BP 122/56; RESP 21
[2016-11-21] MEDS: ATORVASTATIN 10 MG TAB PO SCH (21:00)
[2016-11-21] MEDS: INSULIN GLARGINE [LANtus] 3 ML PEN SC SCH (21:09)
== END 2016-11-21 21:24 | DRG 604 ==
LOC: E/R 13:55 → PP2 19:16 → OBG 11-17 17:35 → PP2 11-20 18:56
PROVIDERS: ADMIT Internal Medicine; ATTEND Internal Medicine
PROC: 0HQ0XZZ Repair Scalp Skin, External Approach (ICD-10-PCS; principal; 2016-11-15)
PROC: 3E00X4Z Introduction of Serum, Toxoid and Vaccine into Skin and Mucous Membranes, External Approach (ICD-10-PCS; 2016-11-18)
DX: S01.01XA Laceration without foreign body of scalp, initial encounter (principal); I62.03 Nontraumatic chronic subdural hemorrhage; G93.40 Encephalopathy, unspecified; I10 Essential (primary) hypertension; E11.9 Type 2 diabetes mellitus without complications; D72.829 Elevated white blood cell count, unspecified; D75.89 Other specified diseases of blood and blood-forming organs; G30.9 Alzheimer's disease, unspecified; F02.80 Dementia in other diseases classified elsewhere, unspecified severity, without behavioral disturbance, psychotic disturbance, mood disturbance, and anxiety; R01.1 Cardiac murmur, unspecified; Z91.81 History of falling; I35.0 Nonrheumatic aortic (valve) stenosis; Z86.73 Personal history of transient ischemic attack (TIA), and cerebral infarction without residual deficits; Z23 Encounter for immunization
CPT/HCPCS: 70450; 71010; 72125; 80048; 81001; 81003; 82607; 82746; 82962; 83036; 83735; 84100; 85025; 85610; 85730; 88300; 90471; 90686; 90715; 93306; 93880; J0360; J1630; J1815; J2405; J3480; J7042